=== PATIENT | male | born 1965 | race Caucasian/White ===

== ENCOUNTER 2017-03-06 15:43 | Emergency (ER) | payer OTHER ==
[~2017-03-06] VITALS: Ht 172.7 cm; Wt 76.2 kg
[2017-03-06] MEDS ORDERED: PERCOCET 5-3251 EACH PO (17:40)
[2017-03-06] MEDS ORDERED: IBUPROFEN 600600 M1 PO (18:26)
[2017-03-06 19:05] VITALS: BP 143/77
== END 2017-03-06 19:06 | disposition home or self-care (01) ==
LOC: ER 15:43
DX: S92.064A Nondisplaced intraarticular fracture of right calcaneus, initial encounter for closed fracture (principal); F17.210 Nicotine dependence, cigarettes, uncomplicated; F10.99 Alcohol use, unspecified with unspecified alcohol-induced disorder; Z98.890 Other specified postprocedural states; W17.89XA Other fall from one level to another, initial encounter; Y93.89 Activity, other specified; Y92.89 Other specified places as the place of occurrence of the external cause; Y99.8 Other external cause status

== ENCOUNTER 2017-03-17 05:13 | Inpatient (IN) | payer OTHER ==
[2017-03-17] VITALS (9 sets, daily range): BP systolic 126–162; BP diastolic 69–124
[~2017-03-17] VITALS: Ht 172.7 cm; Wt 71.2 kg
--- NOTE | ~2017-03-17 | O ---
[facility] [address] [place] [address] OPERATIVE REPORT Name: CURT BLAS Room #: 402-P [facility] IN M.R.#: [id number] Admission: 03/18/17 Attend Phys: Damir Naranjo MD Discharge: 03/19/17 Date of : 69 Report #: [id number] THIS REPORT FOR: //name// CC: [facility] physician/PCP Damir Naranjo DATE OF SERVICE: 03/18/2017 PREOPERATIVE DIAGNOSIS: Right calcaneus intraarticular displaced fracture. POSTOPERATIVE DIAGNOSIS: Right calcaneus intraarticular displaced fracture. PROCEDURE: Right foot calcaneus open reduction and internal fixation. SURGEON: Damir Narajno MD CARDIOLOGY NURSE: Karishma Forman, critical for positioning and safe performance of the procedure. ANESTHESIA: General. ESTIMATED BLOOD LOSS: Minimal. DRAINS: No drains. TOURNIQUET TIME: 90 minutes. DESCRIPTION OF PROCEDURE: The patient brought to the operating room where he was placed under general anesthesia. Once under adequate general anesthesia, his right lower extremity was prepped and draped in sterile manner. The extremity was elevated, exsanguinated, tourniquet placed to 300 mmHg. A lateral incision over the sinus tarsi extending approximately 5 cm was then made. This was dissected down through the soft tissue to the fat pad and extensor digitorum brevis overlying the subtalar joint. This was then opened exposing the subtalar joint in the fracture site and hematoma was evacuated. The ligaments were released to allow access to the posterior facet. Examination of the facet noted the impacted lateral posterior facet fracture, which was then elevated with a [place] elevator and a joker elevator. A bone reduction tenaculum was placed posteriorly to allow reduction of the tongue of the posterior fragment of the fracture. Excellent reduction was achieved. Two 4.0 screws were placed across the subchondral bone at the fracture site and verified under fluoroscopy to be in excellent position. Excellent alignment was achieved inside the joint. The calcaneal plate was then placed after freeing the soft tissue underlying the peroneal tendons and subsequent provisional fixation of the anterior calcaneus was achieved as well. The plate was then placed and multiple screw fixation was achieved, both anteriorly as well as through a separate incision [address] [address] OPERATIVE REPORT Name: CURT BLAS Room #: 402-P [facility] IN M.R.#: [id number] Admission: 03/18/17 Attend Phys: Damir Naranjo MD Discharge: 03/19/17 Date of : 69 Report #: [id number] posterolaterally on the tuberosity. Excellent fixation was achieved and excellent alignment was verified as noted under fluoroscopy. The wounds were irrigated copiously and closed with 2-0 Vicryl in the deep fascia, 2-0 Vicryl in subcutaneous tissues and desi were used for the skin. The wound was dressed with Xeroform, 4 x 4s, and sterile soft compressive dressing was placed. Tourniquet was let down at approximately 90 minutes. A short leg cast was placed. Toes were pink and warm with good capillary refill. There were no complications from the procedure. The patient tolerated the procedure well and went to the recovery room without incident. By: [id number] Damir Naranjo MD /nt
[~2017-03-17 05:13] MED LIST: ACID REDUCER75 MG PO; BENADRYL25 MG PO; IBUPROFEN 600600 M1 PO; PERCOCET 5-3251 EACH PO; PERCOCET PO; TUMS PO
[2017-03-18 04:00] VITALS: BP 140/65
[2017-03-18 06:17] LABS: HEMATOCRIT 41.2 % (42.0-52.0)
[2017-03-18 06:28] LABS: POTASSIUM 3.7 mmol/L (3.5-5.1)
[2017-03-18 07:09] VITALS: BP 144/78
[2017-03-18 16:15] VITALS: BP 122/78
[2017-03-18 20:00] VITALS: BP 136/71
[2017-03-19 04:00] VITALS: BP 126/72
[2017-03-19 08:51] VITALS: BP 128/78
[2017-03-19] MEDS ORDERED: PERCOCET 7.5-31 EACH PO (10:56)
[2017-03-19] MEDS ORDERED: ASPIRIN EC325 MG PO (10:57)
[2017-03-19 11:04] VITALS: BP 128/78
== END 2017-03-19 11:32 | disposition home or self-care (01) | DRG 505 ==
LOC: OR 05:13 → TBA 05:14 → PRE 11:12 → OR 11:14 → 4N 11:15 → EDSTATUS 11:31 → OR 11:41 → 4N 03-18 07:39
PROVIDERS: Orthopaedic Surgery Foot and Ankle Surgery
PROC: 0QSL04Z Reposition Right Tarsal with Internal Fixation Device, Open Approach (ICD-10-PCS; principal; 2017-03-18)
DX: S92.061A Displaced intraarticular fracture of right calcaneus, initial encounter for closed fracture (principal); W18.39XA Other fall on same level, initial encounter; Y93.89 Activity, other specified; Y92.89 Other specified places as the place of occurrence of the external cause; Y99.8 Other external cause status
CPT/HCPCS: 10790; 50010; 50101; 50386; 51412; 52121; 55430; 56524; 57091; 62110; 62900; 70005

== ENCOUNTER → 2020-05-22 | Outpatient (CLI) | payer OTHER ==
[~2020-05-22] MED LIST changes: +ASPIRIN EC325 MG PO; +PERCOCET 7.5-31 EACH PO
== END ==
LOC: CAT 07:33
PROVIDERS: ATTEND Orthopaedic Surgery Foot and Ankle Surgery
DX: S82.51XD Displaced fracture of medial malleolus of right tibia, subsequent encounter for closed fracture with routine healing (principal); M19.171 Post-traumatic osteoarthritis, right ankle and foot; M76.61 Achilles tendinitis, right leg; X58.XXXD Exposure to other specified factors, subsequent encounter